=== PATIENT | female | born 2000 | race Caucasian/White ===

== ENCOUNTER 2024-02-08 15:53 | Outpatient (CLI) | payer BC, SELFPAY | END 2024-02-08 15:54 | disposition home or self-care (01) | PROVIDERS: PCP Physician Assistant Medical; Visit Provider Registered Nurse | DX: Z12.4 Encounter for screening for malignant neoplasm of cervix (principal) | CPT/HCPCS: 87624; 87625; 88141; 88142 ==

== ENCOUNTER 2024-04-18 11:29 | Outpatient (CLI) | payer BC, SELFPAY | END 2024-04-18 11:30 | disposition home or self-care (01) | LOC: NFLDREF 04-19 08:38 | PROVIDERS: PCP Physician Assistant Medical; Referring Provider Physician Assistant Medical; Visit Provider Physician Assistant Medical | DX: Z11.3 Encounter for screening for infections with a predominantly sexual mode of transmission (principal); Z13.228 Encounter for screening for other metabolic disorders; Z13.220 Encounter for screening for lipoid disorders; Z13.29 Encounter for screening for other suspected endocrine disorder | CPT/HCPCS: 80053; 80061; 84443; 87491; 87591 ==

== ENCOUNTER 2025-03-19 08:03 | Outpatient (CLI) | payer BC, SELFPAY ==
--- NOTE | 2025-03-19 08:15 | CRLHL7_ITS ---
For Patients: As a result of the Century Cures Act, medical imaging exams and procedure reports are released immediately into your electronic medical record. You may view this report before your referring provider. If you have questions, please contact your health care provider. OB ULTRASOUND LESS THAN 14 WEEKS CLINICAL HISTORY: Dating and viability. TECHNIQUE: Real time bowden scale imaging of the fetus was performed. Transabdominal imaging performed. COMPARISON: None. FINDINGS: Imaging: TA. LMP: 01/14/2025. SOSA by LMP: 10/21/2025. GA: 9 weeks 1 day. CRL: 1.9 cm, 8 weeks 3 days. SOSA: 10/26/2025. FHR: 180 bpm. GEST SAC: 3.7 cm, appears WNL. YOLK SAC: 3.6 mm, appears WNL. RIGHT OV: 2.7 x 1.9 x 1.9 cm. LEFT OV: 3.4 x 2.6 x 2.5 cm. CL IMPRESSION: 1. Single living intrauterine measures 8 weeks 3 days with sonographic due date 10/26/2025. 2. heart rate 180 bpm. 3. Subchorionic hemorrhage measures 5 x 4 x 13 mm. 4. Corpus luteal cyst left ovary measures 18 mm. Akhil Dennison M.D. Diagnostic Radiologist [email or web address] Transcribed: 11:07 am DW/Dictated by: Akhil Dennison MD @ 03/19/2025 10:20:00 AM (Electronically Signed)
== END 2025-03-19 08:04 | disposition home or self-care (01) ==
LOC: US 08:04
PROVIDERS: PCP Physician Assistant Medical; Visit Provider Registered Nurse
DX: O20.9 Hemorrhage in early pregnancy, unspecified (principal); O34.81 Maternal care for other abnormalities of pelvic organs, first trimester; N83.12 Corpus luteum cyst of left ovary; Z3A.08 8 weeks gestation of pregnancy
CPT/HCPCS: 76801